=== PATIENT | male | born 1970 | race Caucasian/White ===

== ENCOUNTER 2018-03-20 07:19 | Emergency (ER) | payer SELFPAY ==
[2018-03-20] MEDS ORDERED: NS 0.9% 1000 ML* 1,000 ML IV ONE (07:36)
[2018-03-20] MEDS ORDERED: Ketorolac INJ* 30 MG/ML 1 ML VIAL IV PUSH ONE (07:36)
--- NOTE | 2018-03-20 07:38 | ED ---
Abdominal Pain/Male - HPI Summary HPI Summary: Patient is a 48-year-old male who presents emergency department for lower abdominal pain, fever and urinary hesitancy that started yesterday. Patient states his fever yesterday was 103F. He notes the majority of his pain seems to be suprapubic and the perineum. Pain is exacerbated with urination. He denies hematuria, flank pain, vomiting, diarrhea, upper respiratory symptoms, testicular pain swelling or redness. He denies past medical history. Symptoms are moderate in severity. - History of Current Complaint Chief Complaint: EDUrogenitalProblems Stated Complaint: FEVER/POSS UTI Time Seen by Provider: 03/20/18 07:28 Hx Obtained From: Patient Pain Intensity: 4 - Allergies/Home Medications Allergies/Adverse Reactions: Allergies Allergy/AdvReac Type Severity Reaction Status Date / Time No Known Allergies Allergy Verified 03/20/18 07:26 PMH/Surg Hx/FS Hx/Imm Hx Infectious Disease History: No Infectious Disease History: Denies: Traveled Outside the [place] in Last 30 Days Review of Systems Positive: Fever, Chills Eyes: Negative ENT: Negative Cardiovascular: Negative Negative: Chest Pain Respiratory: Negative Negative: Shortness Of Breath, Cough Positive: Abdominal Pain. Negative: Vomiting, Diarrhea, Nausea Positive: urgency. Negative: discharge, flank pain, hematuria Musculoskeletal: Negative Skin: Negative Neurological: Negative All Other Systems Reviewed And Are Negative: Yes Physical Exam Triage Information Reviewed: Yes Vital Signs On Initial Exam: Initial Vitals Temp Pulse Resp BP Pulse Ox 99 F 90 16 136/84 97 03/20/18 07:22 03/20/18 07:22 03/20/18 07:22 03/20/18 07:22 03/20/18 07:22 Vital Signs Reviewed: Yes Appearance: Positive: Pain Distress - Patient sitting up in bed in no acute distress. Appears to feel unwell but nontoxic. present. Skin: Positive: Warm, Dry Head/Face: Positive: Normal Head/Face Inspection Eyes: Positive: Normal, EOMI, Conjunctiva Clear Neck: Positive: Supple, Nontender. Negative: Nuchal Rigidity Respiratory/Lung Sounds: Positive: Clear to Auscultation, Breath Sounds Present Cardiovascular: Positive: Normal, RRR Abdomen Description: Positive: Other: - Abdomen is soft with marked tenderness and guarding to the right and left lower quadrants and suprapubic region. No CVA tenderness bilaterally. Neurological: Positive: Normal, CN Intact II-III Psychiatric: Positive: Affect/Mood Appropriate Diagnostics - Vital Signs Vital Signs Temp Pulse Resp BP Pulse Ox 03/20/18 07:22 99 F 90 16 136/84 97 - Laboratory Result Diagrams: 03/20/18 07:38 03/20/18 07:38 Lab Statement: Any lab studies that have been ordered have been reviewed, and results considered in the medical decision making process. Abdominal Pain Fem Course/Dx - Course Course Of Treatment: Patient presenting with lower abdominal pain and urinary urgency. He is afebrile stable vital signs and not ER. Will started on IV fluids and Toradol for pain. Pending blood work, urinalysis and CAT scan. Differential includes cellulitis, appendicitis, urolithiasis, prostatitis. CBC and CMP are unremarkable other than elevated CRP at 100. Urinalysis shows RBCs without signs of infection. CT scan is consistent with diverticulitis. Reexamination patient is resting comfortably. Results were discussed. Will treat him with Cipro and Flagyl, first dose given in the ER. Discussed pain medication patient would like to stick with Tylenol. Advised clear liquid diet to 3-5 days. Close follow-up with the [facility]. Advised to return to the ER for increased pain, high fevers, vomiting or if concerned. Patient understand and agree with plan. CT abd/pelvis per radiology: IMPRESSION: 1. DIVERTICULITIS WITHOUT LOCULATED FLUID COLLECTION TO SUGGEST ABSCESS. 2. FATTY INFILTRATION OF THE LIVER. - Diagnoses Differential Diagnosis/HQI/PQRI: Appendicitis, Bowel Obstruction, Constipation, Diverticulitis, Epididymitis, Hepatitis, Ischemic Bowel, Pancreatitis, Renal Colic, Testicular Torsion, Ureteral Stone, Urinary Tract Infection Provider Diagnoses: Diverticulitis large intestine Discharge - Sign-Out/Discharge Documenting (check all that apply): Patient Departure - Discharge Plan Condition: Good Disposition: HOME Prescriptions: Ciprofloxacin TAB* [Cipro 500 MG TAB*] 500 mg PO BID #20 tab metroNIDAZOLE [Flagyl 500 MG TAB] 500 mg PO TID 30 Days #1 tab Patient Education Materials: Diverticulitis (ED) Referrals: [facility] [Outside] Additional Instructions: Schedule an appointment with the [facility] Take medication as directed Clear liquid diet x 3-5 days Tylenol for pain as directed Return to ER for increased pain, high fevers, vomiting or if concerned - Billing Disposition and Condition Condition: GOOD Disposition: Home - Attestation Statements Provider Attestation: I was available for consult. This patient was seen by the [facility]. The patient was not presented to, seen by, or examined by me. -Michael
[2018-03-20 07:54] LABS: ABS Basophils 0.1 10^3/ul (0-0.2); ABS Eosinophils 0.1 10^3/ul (0-0.6); ABS Lymphocytes 1.4 10^3/ul (1.0-4.8); ABS Neutrophils 7.7 10^3/ul (1.5-7.7); ABS Nucleated RBC 0 10^3/ul; Eosinophil % 0.8 %; Hematocrit 43 % (42-52); Hemoglobin 15.2 g/dl (14.0-18.0); Mean Corpuscular HGB Conc 35 g/dl (31-36); Mean Corpuscular Hemoglobin 32 pg (27-31); Mean Corpuscular Volume 91 fL (80-94); Mean Platelet Volume 8.6 fL (7.4-10.4); Nucleated Red Blood Cells % 0; Platelet Count 213 10^3/ul (150-450); Red Blood Count 4.75 10^6/ul (4.00-5.40); Red Cell Distribution Width 13 % (10.5-15); White Blood Count 10.3 10^3/ul (3.5-10.8)
[2018-03-20 08:16] LABS: Albumin 4.2 g/dL (3.2-5.2); Albumin/Globulin Ratio 1.6 (1-3); BUN/Creatinine Ratio 12.5 (8-20); C Reactive Protein 101.86 mg/L (<8.01); Calcium 9.3 mg/dL (8.6-10.3); EGFR Non-African American 93.2 (>60); Globulin 2.7 g/dL (2-4); Potassium 3.9 mmol/L (3.5-5.0); Total Bilirubin 1.2 mg/dL (0.2-1.0); Total Protein 6.9 g/dL (6.4-8.9)
[2018-03-20] MEDS ORDERED: Iohexol 300* (CONTRAST) 10 ML SDV IV ONE (08:54)
[2018-03-20 09:25] LABS: Urine Appearance Clear; Urine Bacteria Absent (Absent); Urine Bilirubin Negative (Negative); Urine Blood 1+ (Negative); Urine Color Yellow; Urine Glucose Negative (Negative); Urine Ketones Negative (Negative); Urine Nitrite Negative (Negative); Urine Protein Negative (Negative); Urine Red Blood Cell 1+(3-5/hpf) (Absent); Urine Specific Gravity 1.008 (1.010-1.030); Urine Urobilinogen Positive (Negative); Urine White Blood Cell Absent (Absent)
[2018-03-20] MEDS ORDERED: metroNIDAZOLE TAB* 250 MG PO ONE (09:25)
[2018-03-20] MEDS ORDERED: Ciprofloxacin TAB* 500 MG PO ONE (09:25)
[2018-03-20 10:14] VITALS: BP 131/76
== END 2018-03-20 10:13 | disposition home or self-care (01) ==
LOC: ED 07:19
DX: K57.32 Diverticulitis of large intestine without perforation or abscess without bleeding (principal); K76.0 Fatty (change of) liver, not elsewhere classified; R50.9 Fever, unspecified; R39.15 Urgency of urination
CPT/HCPCS: 36415; 74177; 80053; 81003; 81015; 83605; 85025; 86140; 96374; 99283; A9270-GY; J1885; Q9967

== ENCOUNTER 2018-10-23 20:24 | Emergency (ER) | payer BC ==
[2018-10-23] MEDS ORDERED: Ketorolac INJ* 30 MG/ML 1 ML VIAL IM ONE (21:38)
[2018-10-23] MEDS ORDERED: Penicillin VK TAB* 250 MG PO ONE (21:39)
--- NOTE | 2018-10-23 21:43 | ED ---
Throat Pain/Nasal Congestion - HPI Summary HPI Summary: 48-year-old male presents with dental pain. He states he broke a tooth couple weeks. He has a dentist appointment in 2 weeks. He states he's been having increasing swelling to the area. Has been taking ibuprofen the pain has not been working. He states he did have extreme pain. No fevers. No sore throat. No chest pressure or shortness of breath. No swelling or pain around his eyes. Has no medical conditions. - History of Current Complaint Chief Complaint: EDDentalPain Time Seen by Provider: 10/23/18 20:52 - Allergies/Home Medications Allergies/Adverse Reactions: Allergies Allergy/AdvReac Type Severity Reaction Status Date / Time acetaminophen [From Percocet] Allergy See Comment Verified 10/23/18 20:30 oxycodone [From Percocet] Allergy See Comment Verified 10/23/18 20:30 Home Medications: Home Medications raNITIdine HCl [Heartburn Relief] 150 mg PO BEDTIME 10/23/18 [History Confirmed 10/23/18] PMH/Surg Hx/FS Hx/Imm Hx Endocrine/Hematology History: Denies: Hx Diabetes Cardiovascular History: Denies: Hx Hypertension History: Denies: Hx Renal Disease - Surgical History Surgery Procedure, Year, and Place: L4, L5 DISCECTOMY - Immunization History Date of Tetanus Vaccine: UTD Date of Influenza Vaccine: NO Infectious Disease History: No Infectious Disease History: Denies: Traveled Outside the [place] in Last 30 Days - Family History Known Family History: Positive: Non-Contributory - Social History Alcohol Use: Occasionally Substance Use Type: Reports: Marijuana Smoking Status (MU): Former Smoker Review of Systems Negative: Fever Positive: Dental Pain Negative: Chest Pain Negative: Shortness Of Breath All Other Systems Reviewed And Are Negative: Yes Physical Exam Triage Information Reviewed: Yes Vital Signs On Initial Exam: Initial Vitals Temp Pulse Resp BP Pulse Ox 98.4 F 74 16 142/101 98 10/23/18 20:27 10/23/18 20:27 10/23/18 20:27 10/23/18 20:27 10/23/18 20:27 Vital Signs Reviewed: Yes Appearance: Positive: Well-Appearing Skin: Positive: Warm, Dry Head/Face: Positive: Normal Head/Face Inspection Eyes: Positive: Normal, EOMI, SHAWN, Conjunctiva Clear ENT: Positive: Normal ENT inspection, Pharynx normal, TMs normal Dental: Positive: Other - left upper jaw pain, no abscess felt Neck: Positive: Supple, Nontender, No Lymphadenopathy Respiratory/Lung Sounds: Positive: Clear to Auscultation, Breath Sounds Present Cardiovascular: Positive: Normal, RRR Abdomen Description: Positive: Nontender, Soft Bowel Sounds: Positive: Present Musculoskeletal: Positive: Normal Neurological: Positive: Normal Psychiatric: Positive: Normal Diagnostics - Vital Signs Vital Signs Temp Pulse Resp BP Pulse Ox 10/23/18 20:27 98.4 F 74 16 142/101 98 - Laboratory Lab Statement: Any lab studies that have been ordered have been reviewed, and results considered in the medical decision making process. EENT Course/Dx - Course Course Of Treatment: 48-year-old male presents with dental pain. He states he broke a tooth couple weeks. He has a dentist appointment in 2 weeks. He states he's been having increasing swelling to the area. Has been taking ibuprofen the pain has not been working. He states he did have extreme pain. No fevers. No sore throat. No chest pressure or shortness of breath. No swelling or pain around his eyes. Has no medical conditions. On exam tenderness left upper jaw. No abscess noted. Will place patient on penicillin. gave short course pain medication. Patient understands agrees plan. - Differential Diagnoses Differential Diagnoses: Dental Abscess, Dental Caries, Fractured Tooth - Diagnoses Provider Diagnoses: Dental infection Discharge - Sign-Out/Discharge Documenting (check all that apply): Patient Departure Patient Received Moderate/Deep Sedation with Procedure: No - Discharge Plan Condition: Good Disposition: HOME Prescriptions: Penicillin VK TAB* [Penicillin VK 250 mg Tab*] 500 mg PO QID #27 tab traMADol TAB* [Ultram*] 50 mg PO Q12H PRN #4 tab MDD 2 PRN Reason: Pain Patient Education Materials: Toothache (ED) Referrals: [facility] [Outside] Additional Instructions: Take antibiotics: 4 times a day for 7 days, first dose given in ED Use ibuprofen every 6 hours and tramadol every 12 hours for break through pain Avoid hard, crunchy food until seen by dentist Follow up with dentist as soon as possible Return to ED if develop fever, shortness of breath, pain with eye movement or swelling around eye Establish care with primary care physician - Billing Disposition and Condition Condition: GOOD Disposition: Home
[2018-10-23 22:43] VITALS: BP 152/79
== END 2018-10-23 22:20 | disposition home or self-care (01) ==
LOC: ED 20:24
DX: K04.7 Periapical abscess without sinus (principal); Z88.5 Allergy status to narcotic agent; Z79.899 Other long term (current) drug therapy; Z87.891 Personal history of nicotine dependence
CPT/HCPCS: 96372; 99282; A9270-GY; J1885

== ENCOUNTER 2019-02-05 15:09 | Emergency (ER) | payer BC ==
--- NOTE | 2019-02-05 15:52 | ED ---
Headache - HPI Summary HPI Summary: 48-year-old male presents to the ED with a chief complaint of a headache which he rates as a 8.5 out of 10 which has occurred over the last 3 days. He says he first noticed a headache while he is at work but denies any history of trauma. He denies any personal history of headaches or polycystic kidney disease but endorses a family medical history of his mother getting migraines. He states the pain is a frontal constant sharp pain which is worse with loud noises and light. He endorses this is the "worst headache of his life." He states he tried alleviating symptoms with 600 mg of ibuprofen every 6 hours with no relief. Triage note was acknowledged, the patient shows no meningeal symptoms or fever although he endorses a subjective fever this morning. Patient endorses photo phobia and phonophobia. Patient denies: History of trauma, neck pain, chest pain, shortness of breath, abdominal pain, changes in vision or an aura prior to headache. - History Of Current Complaint Chief Complaint: EDHeadache Stated Complaint: FLU SYMPTOMS, BLISTERS IN NOSE PER PT Time Seen by Provider: 02/05/19 15:32 Hx Obtained From: Patient Onset/Duration: Gradual Onset Initially Headache Was: "Worst Headache Ever", Initial Pain Scale(0-10)= - 8.5 Currently Pain Is: Current Pain Scale(0-10)= - 8.5 Timing: Constant Character: Sharp, Pressure Location of Headache: Frontal Aggravating Factor: Bright Lights Allevating Factors: Nothing Associated Signs And Symptoms: Nausea - Risk Factors SAH Risk Factors: Negative Meningitis Risk Factors: Negative SDH Risk Factors: Male Temporal Arteritis Risk Factors: - Allergies/Home Medications Allergies/Adverse Reactions: Allergies Allergy/AdvReac Type Severity Reaction Status Date / Time oxycodone [From Percocet] Allergy See Comment Verified 10/23/18 20:30 PMH/Surg Hx/FS Hx/Imm Hx Endocrine/Hematology History: Denies: Hx Diabetes Cardiovascular History: Denies: Hx Hypertension History: Denies: Hx Renal Disease - Surgical History Surgery Procedure, Year, and Place: L4, L5 DISCECTOMY - Immunization History Date of Tetanus Vaccine: UTD Date of Influenza Vaccine: NO Infectious Disease History: No Infectious Disease History: Denies: Traveled Outside the [place] in Last 30 Days - Family History Known Family History: Positive: Non-Contributory - Social History Alcohol Use: Occasionally Substance Use Type: Reports: Marijuana Smoking Status (MU): Former Smoker Review of Systems Constitutional: Negative Positive: Fatigue. Negative: Fever Positive: Photophobia. Negative: Blurred Vision, Diplopia, Erythema Negative: Nasal Discharge Cardiovascular: Negative Respiratory: Negative Gastrointestinal: Negative Negative: Arthralgia, Myalgia, Decreased ROM Positive: Headache. Negative: Paresthesia, Numbness, Syncope, Slurred Speech Psychological: Normal All Other Systems Reviewed And Are Negative: Yes Physical Exam - Summary Physical Exam Summary: Negative Brudzinski's sign Triage Information Reviewed: Yes Vital Signs On Initial Exam: Initial Vitals Temp Pulse Resp BP Pulse Ox 98.5 F 98 18 116/83 98 02/05/19 15:14 02/05/19 15:14 02/05/19 15:14 02/05/19 15:14 02/05/19 15:14 Vital Signs Reviewed: Yes Appearance: Positive: Well-Nourished, Pain Distress, Obese Skin: Positive: Warm, Skin Color Reflects Adequate Perfusion Head/Face: Positive: Normal Head/Face Inspection. Negative: Temporal Artery Tenderness Eyes: Positive: Normal, EOMI, SHAWN, Conjunctiva Clear ENT: Positive: Normal ENT inspection, Hearing grossly normal. Negative: Sinus tenderness Neck: Positive: Nontender. Negative: Nuchal Rigidity, Tenderness @ - Cervical spine Respiratory/Lung Sounds: Positive: Clear to Auscultation, Breath Sounds Present Cardiovascular: Positive: Normal, RRR, S1, S2 Abdomen Description: Positive: Nontender Bowel Sounds: Positive: Present Neurological: Positive: Sensory/Motor Intact, Alert, Oriented to Person Place, Time, CN Intact II-III, Normal Gait, Heel to Toe, Finger to Nose, Speech Normal Psychiatric: Positive: Normal AVPU Assessment: Alert Procedures - Sedation Patient Received Moderate/Deep Sedation with Procedure: No Diagnostics - Vital Signs Vital Signs Temp Pulse Resp BP Pulse Ox 02/05/19 15:14 98.5 F 98 18 116/83 98 - Laboratory Result Diagrams: 02/05/19 16:10 02/05/19 16:10 Lab Statement: Any lab studies that have been ordered have been reviewed, and results considered in the medical decision making process. Re-Evaluation - Re-Evaluation First Eval Re-Evaluation Time: 17:25 Change: Improved Comment: Pt feels much better after fluids,toradol, reglan and benadryl. Pt states his pain is gone, but still has a "pressure". Pt was offered a LP for definitive rule out of pathology but refused. Headache Course/Dx - Course Course Of Treatment: Patient was evaluated today in the emergency department for a chief complaint of headache. Seen and evaluated. IV access was established and the patient was given IV fluids, Benadryl, Toradol and Reglan for his headache. A CT of the brain without contrast was ordered in order to investigate a possible subarachnoid hemorrhage or other brain pathology due to the patient stating this is the "worst headache of my life". CT brain showed no acute intracranial abnormality. Pt had a significant relief in pain following treatment with IV fluids, Benadryl, Reglan,and Toradol nut still endorsed a pressure. Patient was offered a lumbar puncture in order to definitively diagnose pathology however he refused. Laboratory results were all unconcerning. White blood cell count was 7.3 platelet count was 215, INR was 1.11. Patients vitals remained stable during the duration of his stay. Patient is to be sent home with Fioricet to take for a headache. Does not have a primary care physician but he will be referred to one of our [facility] Providers in order to follow-up within the next few days. - Diagnoses Differential Diagnosis/HQI/PQRI: Epidural Hematoma, Subdural Hematoma, Meningitis, Migraine, Sinus Headache, Subarachnoid Hemorrhage, Temporal Arteritis, Tension Headache Provider Diagnoses: Headache Discharge ED - Sign-Out/Discharge Documenting (check all that apply): Patient Departure - Discharge Plan Condition: Good Disposition: HOME Prescriptions: Butalb/Acetamin/Caff TAB* [Fioricet TAB*] 1 tab PO Q6H PRN #20 tab MDD 4 tabs PRN Reason: Headache Patient Education Materials: Acute Headache (ED) Forms: *Gen. Provider Communication Referrals: No Primary Care Phys,NOPCP [Primary Care Provider] - [facility] [Outside] Additional Instructions: Return to daily activity as tolerated. Take one tablet Fioricet every 6 hours for headache which cannot be controlled with ibuprofen do not exceed more than 4 tablets within 24 hours. Follow-up with her [facility] group for a primary care provider to be reevaluated in 2-3 days. Return to the emergency department if there are any new or worsening symptoms such as changes in vision , weakness on one side of you body, trouble speaking, difficulties with gait. - Billing Disposition and Condition Condition: GOOD Disposition: Home - Attestation Statements Provider Attestation: Patient was presented to me by the EAPP. On my examination, patient states that 3 days of headache. Patient's headache has gotten worse and peaked on Monday. Patient has no focal deficits, neck stiffness, change in vision, slurred speech, numbness. Patient has had bile-type symptoms over the past couple days with a subjective fever this morning. On my exam, patient has a normal neurologic exam with no evidence of meningismus. Patient had a negative jolt accentuation test, Bradzinski test, Kernig test. Patient had a CT head which showed no abnormality. Patient had blood work performed which showed no leukocytosis. Patient was offered an LP to rule out subretinal hemorrhage and meningitis but declined. Patient's headache did go away with a headache cocktail. Patient was encouraged to return if worsening symptoms.
[2019-02-05] MEDS ORDERED: Metoclopramide IV* 5 MG/ML 2 ML VIAL IV ONE (15:54)
[2019-02-05] MEDS ORDERED: NS 0.9% 1000 ML** 1,000 ML IV ONE (15:54)
[2019-02-05] MEDS ORDERED: diPHENhydraMINE IV* 50 MG/ML 1 ml VIAL (BENADRYL) IV ONE (15:54)
[2019-02-05] MEDS ORDERED: Ketorolac INJ* 30 MG/ML 1 ML VIAL IV ONE (15:54)
[2019-02-05 16:38] LABS: ABS Basophils 0.1 10^3/ul (0-0.2); ABS Eosinophils 0.1 10^3/ul (0-0.6); ABS Lymphocytes 1.5 10^3/ul (1.0-4.8); ABS Monocytes 0.3 10^3/ul (0-0.8); ABS Neutrophils 5.3 10^3/ul (1.5-7.7); Hematocrit 46 % (42-52); Hemoglobin 16.1 g/dL (14.0-18.0); Lymphocyte % 20.6 %; Mean Corpuscular HGB Conc 35 g/dL (31-36); Mean Corpuscular Hemoglobin 32 pg (27-31); Mean Corpuscular Volume 91 fL (80-94); Mean Platelet Volume 9.1 fL (7.4-10.4); Nucleated Red Blood Cells % 0.4; Platelet Count 215 10^3/uL (150-450); Red Blood Count 5.08 10^6 /uL (4.18-5.48); Red Cell Distribution Width 13 % (10-15); White Blood Count 7.3 10^3/uL (3.5-10.8)
[2019-02-05 16:45] LABS: Albumin 4.1 g/dL (3.2-5.2); Albumin/Globulin Ratio 1.5 (1-3); BUN/Creatinine Ratio 15.2 (8-20); Calcium 9.2 mg/dL (8.6-10.3); EGFR African American 127.8 (>60); EGFR Non-African American 105.6 (>60); Globulin 2.7 g/dL (2-4); Potassium 3.5 mmol/L (3.5-5.0); Total Bilirubin 0.7 mg/dL (0.2-1.0); Total Protein 6.8 g/dL (6.4-8.9)
[2019-02-05 17:06] LABS: INR 1.11 (0.82-1.09)
[2019-02-05 18:08] LABS: Urine Appearance Clear; Urine Bilirubin Negative (Negative); Urine Blood Negative (Negative); Urine Color Straw; Urine Glucose Negative (Negative); Urine Ketones Negative (Negative); Urine Nitrite Negative (Negative); Urine Protein Negative (Negative); Urine Specific Gravity 1.003 (1.010-1.030); Urine Urobilinogen Negative (Negative)
[2019-02-05 18:16] LABS: Erythrocyte Sed Rate 0 mm/Hr (0-14)
[2019-02-05 18:28] VITALS: BP 132/80
== END 2019-02-05 18:27 | disposition home or self-care (01) ==
LOC: ED 15:09
DX: R51 Headache (principal); Z87.891 Personal history of nicotine dependence; R53.83 Other fatigue; H53.149 Visual discomfort, unspecified
CPT/HCPCS: 36415; 70450; 80053; 81003; 83605; 85025; 85610; 85652; 96361; 96374; 96375; 99283; J1200; J1885; J2765